=== PATIENT | female | born 1960 | race Caucasian/White ===

== ENCOUNTER 2016-06-14 12:05 | Emergency (ER) | payer OTHER ==
[~2016-06-14] VITALS: Ht 157.5 cm; Wt 72.6 kg
[~2016-06-14 12:05] MED LIST: VALS160T2 PO
[2016-06-14 12:51] LABS: APPEARANCE,URINE Turbid (CLEAR); BILIRUBIN,URINE Negative (NEGATIVE); BLOOD, URINE Trace-lysed Ery/uL (NEGATIVE); COLOR,URINE Orange (YELLOW); KETONES,URINE Negative (NEGATIVE); LEUKOCYTE ESTERASE ,URINE Trace (NEGATIVE); NITRITE, URINE Positive (NEGATIVE); PH,URINE 6.5 (5.0-8.0); PROTEIN,URINE 30 mg/dl (NEGATIVE); UGLUCOSE 100 MG/DL mg/dL (NEGATIVE)
[2016-06-14 13:00] LABS: RBC,URINE 0-2 /HPF (0-2)
[2016-06-14 13:01] LABS: ADD URINE CULTURE YES; BACTERIA,URINE Moderate /HPF (None Seen); SQUAMOUS EPITHELIAL CELL,UR Few /HPF (None Seen)
[2016-06-14] MEDS ORDERED: CEPHALEXIN MONOHYDRATE 500 MG CAPSULE PO ONE ×2 (13:26→13:30)
[2016-06-14] MEDS ORDERED: PHENAZOPYRIDINE HCL 200 MG TABLET ONE (13:26)
[2016-06-14] MEDS ORDERED: PHENAZOPYRIDINE HCL 200 MG TABLET PO ONE (13:30)
[2016-06-14 13:36] VITALS: BP 125/84
== END 2016-06-14 13:42 | disposition home or self-care (01) ==
LOC: ER 12:07
DX: N39.0 Urinary tract infection, site not specified (principal); I10 Essential (primary) hypertension; Z90.49 Acquired absence of other specified parts of digestive tract; Z98.890 Other specified postprocedural states
CPT/HCPCS: 81000-TC; 82962-TC; 87086-TC; 87186-TC; A4606; Z7610

== ENCOUNTER 2017-02-27 11:46 | Emergency (ER) | payer OTHER ==
[~2017-02-27] VITALS: Ht 162.6 cm; Wt 72.6 kg
[2017-02-27 11:55] VITALS: BP 129/80
== END 2017-02-27 12:46 | disposition home or self-care (01) ==
LOC: ER 11:49
DX: R13.19 Other dysphagia (principal); R53.81 Other malaise; I10 Essential (primary) hypertension; Z90.49 Acquired absence of other specified parts of digestive tract; Z90.89 Acquired absence of other organs
CPT/HCPCS: 99283; A4606; Z7610

== ENCOUNTER 2017-08-10 10:50 | Emergency (ER) | payer OTHER ==
[~2017-08-10] VITALS: Ht 162.6 cm; Wt 72.6 kg
[2017-08-10 10:59] VITALS: BP 147/85
== END 2017-08-10 12:04 | disposition home or self-care (01) ==
LOC: ER 10:52
DX: M25.562 Pain in left knee (principal); I10 Essential (primary) hypertension; Z90.49 Acquired absence of other specified parts of digestive tract; Z90.89 Acquired absence of other organs
CPT/HCPCS: 73564-TC; A4606; Z7610

== ENCOUNTER → 2018-08-29 | Emergency (ER) | payer OTHER ==
[~2018-08-29] VITALS: Ht 157.5 cm; Wt 77.1 kg
[~2018-08-29] MED LIST changes: +DIAZEPAM 10 MG TABLET ONE; +DIAZEPAM 10 MG TABLET PO ONE; +FENTANYL PF 100MCG/2ML AMPUL IV ONE; +FENTANYL PF 100MCG/2ML AMPUL ONE; +KETOROLAC TROMETHAMINE INJ 30 MG/ML VIAL IV ONE; +KETOROLAC TROMETHAMINE INJ 30 MG/ML VIAL ONE; +MORPHINE SULFATE INJ 2 MG/ML DISP.SYRIN IV ONE; +MORPHINE SULFATE INJ 4 MG/ML DISP.SYRIN ONE
[2018-08-29 09:48] VITALS: BP 124/68
--- NOTE | 2018-08-29 10:30 | NUR ---
PER ADMITTING AWAITING CALL FROM CM REGARDING CLINICALS FOR TRANSFER CENTER
--- NOTE | 2018-08-29 11:21 | NUR ---
CALLED [facility] - [facility]ITT[facility] TELLO
--- NOTE | 2018-08-29 12:00 | NUR ---
report given to Fabiana RASMUSSEN for hetal.
--- NOTE | 2018-08-31 08:37 | NUR ---
LATE ENTRY DATED 08/29/18. Patient discharged to home in stable condition. Written and verbal after care instructions given. Patient verbalizes understanding of instruction.IV removed. Catheter intact and site benign. Pressure and 4x4 applied to site. No bleeding noted. informed to follow up with PMD for pain management.
== END | disposition home or self-care (01) ==
LOC: ER 08:01 → UNDOADMIN 11:32 → MED 11:32
DX: M54.5 Low back pain (principal); I10 Essential (primary) hypertension; Z90.49 Acquired absence of other specified parts of digestive tract; Z90.89 Acquired absence of other organs; Z98.890 Other specified postprocedural states; Z79.899 Other long term (current) drug therapy
CPT/HCPCS: 72131; 87081; 96374; 96375; 99284; J1885; J2270; J3010

== ENCOUNTER 2018-12-04 06:34 | Emergency (ER) | payer OTHER ==
[~2018-12-04] VITALS: Ht 157.5 cm; Wt 74.8 kg
[~2018-12-04 06:34] MED LIST changes: -DIAZEPAM 10 MG TABLET ONE; -DIAZEPAM 10 MG TABLET PO ONE; -FENTANYL PF 100MCG/2ML AMPUL IV ONE; -FENTANYL PF 100MCG/2ML AMPUL ONE; -KETOROLAC TROMETHAMINE INJ 30 MG/ML VIAL IV ONE; -KETOROLAC TROMETHAMINE INJ 30 MG/ML VIAL ONE; -MORPHINE SULFATE INJ 2 MG/ML DISP.SYRIN IV ONE; -MORPHINE SULFATE INJ 4 MG/ML DISP.SYRIN ONE
--- NOTE | 2018-12-04 06:45 | NUR ---
PT BIB EMS. AAOX4. AMBULATORY. PT C/O ABDOMINAL PAIN WITH N/V X1 DAY. PT BREATHING EVEN AND UNLABORED. SKIN WARM AND INTACT. PLACED ON MONITOR AND PULSE OX. NO ACUTE DISTRESS NOTED. WILL CONTINUE TO MONITOR.
[2018-12-04] MEDS ORDERED: ONDANSETRON HCL/PF 4 MG/2 ML VIAL ONE (06:49)
[2018-12-04] MEDS ORDERED: ONDANSETRON HCL/PF 4 MG/2 ML VIAL IVP ONE (07:00)
[2018-12-04] MEDS ORDERED: IV NS 0.9% 1,000 ML BAG IV ONE (07:00)
[2018-12-04 07:14] LABS: BASOPHILS # (AUTO) 0.1 /CMM (0.0-0.2); BASOPHILS % (AUTO) 0.7 % (0.0-2.0); EOSINOPHILS % (AUTO) 0.3 % (0.0-6.0); HEMATOCRIT 43 % (33-45); HEMOGLOBIN 14.7 g/dL (11.5-14.8); LYMPHOCYTES # (AUTO) 0.6 /CMM (0.8-4.8); LYMPHOCYTES % (AUTO) 5.5 % (20.0-44.0); MEAN CORPUSCULAR HGB CONC 34 g/dl (31.0-36.0); MEAN CORPUSCULAR VOLUME 96 fL (82-100); MONOCYTES # (AUTO) 0.5 /CMM (0.1-1.30); MONOCYTES % (AUTO) 4.4 % (2.0-12.0); NEUTROPHILS # (AUTO) 9.4 /CMM (1.8-8.9); NEUTROPHILS % (AUTO) 89.1 % (43.0-81.0); PLATELET COUNT (AUTO) 303 /CMM (150-450); RED BLOOD CELL COUNT(AUTO) 4.52 MIL/uL (4.0-5.2); WHITE BLOOD COUNT (AUTO) 10.6 K/uL (4.3-11.0)
[2018-12-04 07:27] LABS: ALBUMIN 4.2 g/dL (3.4-5.0); BILIRUBIN,DIRECT 0.1 mg/dL (0.0-0.2); BILIRUBIN,TOTAL 0.8 mg/dL (0.2-1.0); CALCIUM, SERUM 8.8 mg/dL (8.5-10.1); POTASSIUM 3.7 mmol/L (3.5-5.1)
[2018-12-04] MEDS ORDERED: ACETAMINOPHEN ES 500 MG TABLET PO ONE (07:30)
[2018-12-04] MEDS ORDERED: HALOPERIDOL LACTATE INJ 5 MG/ML VIAL IV ONE (07:30)
--- NOTE | 2018-12-04 07:33 | NUR ---
REPORT GIVEN TO VALERY WILSON FOR [facility] MARIA.
[2018-12-04] MEDS ORDERED: HALOPERIDOL LACTATE INJ 5 MG/ML VIAL ONE (07:36)
[2018-12-04 08:25] LABS: APPEARANCE,URINE Clear (CLEAR); BILIRUBIN,URINE Negative (NEGATIVE); BLOOD, URINE Trace-intact Ery/uL (NEGATIVE); KETONES,URINE Negative (NEGATIVE); LEUKOCYTE ESTERASE ,URINE Negative (NEGATIVE); NITRITE, URINE Negative (NEGATIVE); PROTEIN,URINE Negative (NEGATIVE); UGLUCOSE Negative (NEGATIVE); UROBILINOGEN,URINE 0.2 EU/dL (0.2)
[2018-12-04 08:32] LABS: COLOR,URINE DARK YELLOW (YELLOW)
[2018-12-04 08:33] LABS: BACTERIA,URINE Few /HPF (None Seen); SQUAMOUS EPITHELIAL CELL,UR Few /HPF (None Seen)
[2018-12-04 09:27] VITALS: BP 124/74
--- NOTE | 2018-12-04 09:27 | NUR ---
IV removed. Catheter intact and site benign. Pressure and 4x4 applied to site. No bleeding noted. Patient discharged to home in stable condition. Written and verbal after care instructions given. Patient verbalizes understanding of instruction.
== END 2018-12-04 09:28 | disposition home or self-care (01) ==
LOC: ER 06:37
DX: T62.8X1A Toxic effect of other specified noxious substances eaten as food, accidental (unintentional), initial encounter (principal); R11.2 Nausea with vomiting, unspecified; I10 Essential (primary) hypertension; Z90.49 Acquired absence of other specified parts of digestive tract; Z98.890 Other specified postprocedural states; Z90.89 Acquired absence of other organs; Z79.899 Other long term (current) drug therapy; Y92.89 Other specified places as the place of occurrence of the external cause
CPT/HCPCS: 36415; 80048; 80076; 81001; 83690; 85025; 96361; 96374; 96375; 99283; J1630; J2405; J7030; 81000-TC

== ENCOUNTER 2019-04-06 10:18 | Emergency (ER) | payer OTHER ==
[~2019-04-06] VITALS: Ht 162.6 cm; Wt 75.7 kg
--- NOTE | 2019-04-06 10:29 | NUR ---
CAME IN FOR ELEVATED BLOOD PRESSURE AT 0300 THIS MORNING (147/93), TO ER BED 10, HOOKED TO MONITOR, CHANGED TO HOSP GOWN, WARM BLANKET PROVIDED. AWAITING MD LESLIE.
[2019-04-06] MEDS ORDERED: PROP10TA10 PO (10:33)
[2019-04-06] MEDS ORDERED: MELO15TA13 PO (10:33)
[2019-04-06] MEDS ORDERED: LOSA100T3 PO (10:33)
--- NOTE | 2019-04-06 10:41 | NUR ---
DR ARIAS AT BEDSIDE
--- NOTE | 2019-04-06 11:11 | NUR ---
WHEELED OUT VIA [facility] FOR CT SCAN.
[2019-04-06 11:17] LABS: BASOPHILS # (AUTO) 0.1 /CMM (0.0-0.2); BASOPHILS % (AUTO) 0.8 % (0.0-2.0); EOSINOPHILS % (AUTO) 1.6 % (0.0-6.0); HEMATOCRIT 37 % (33-45); HEMOGLOBIN 12.6 g/dL (11.5-14.8); LYMPHOCYTES # (AUTO) 1.8 /CMM (0.8-4.8); LYMPHOCYTES % (AUTO) 25.6 % (20.0-44.0); MEAN CORPUSCULAR HGB CONC 34 g/dl (31.0-36.0); MEAN CORPUSCULAR VOLUME 100 fL (82-100); MONOCYTES # (AUTO) 0.6 /CMM (0.1-1.30); MONOCYTES % (AUTO) 7.8 % (2.0-12.0); NEUTROPHILS # (AUTO) 4.5 /CMM (1.8-8.9); NEUTROPHILS % (AUTO) 64.2 % (43.0-81.0); PLATELET COUNT (AUTO) 296 /CMM (150-450); RED BLOOD CELL COUNT(AUTO) 3.73 MIL/uL (4.0-5.2); WHITE BLOOD COUNT (AUTO) 7.1 K/uL (4.3-11.0)
[2019-04-06 11:24] LABS: CALCIUM, SERUM 9.1 mg/dL (8.5-10.1); CARBON DIOXIDE 31 mmol/L (21-32); CHLORIDE 105 mmol/L (98-107); CREATININE 0.9 mg/dL (0.6-1.3); GLUCOSE 104 mg/dL (74-106); SODIUM SERUM 142 mmol/L (136-145); UREA NITROGEN, BLOOD 9 mg/dL (7-18)
[2019-04-06 11:29] LABS: ALANINE AMINOTRANSFERASE 20 U/L (12-78); ALBUMIN 3.9 g/dL (3.4-5.0); ALKALINE PHOSPHATASE 101 U/L (46-116); ASPARTATE AMINOTRANSFERASE 31 U/L (15-37); BILIRUBIN,DIRECT 0.1 mg/dL (0.0-0.2); BILIRUBIN,TOTAL 0.4 mg/dL (0.2-1.0); TOTAL PROTEIN, SERUM 7.6 g/dL (6.4-8.2)
--- NOTE | 2019-04-06 12:20 | NUR ---
Patient discharged to home in stable condition. Written and verbal after care instructions given. Patient verbalizes understanding of instruction.
[2019-04-06 12:24] VITALS: BP 132/70
== END 2019-04-06 12:24 | disposition home or self-care (01) ==
LOC: ER 10:22
DX: R51 Headache (principal); I10 Essential (primary) hypertension; R00.1 Bradycardia, unspecified; Z90.89 Acquired absence of other organs; Z90.49 Acquired absence of other specified parts of digestive tract; Z98.890 Other specified postprocedural states; Z79.899 Other long term (current) drug therapy
CPT/HCPCS: 36415; 70450-TC; 80048-TC; 80076-TC; 84484-TC; 85025-TC

== ENCOUNTER 2019-07-31 06:48 | Emergency (ER) | payer OTHER ==
[~2019-07-31] VITALS: Ht 157.5 cm; Wt 74.8 kg
[~2019-07-31 06:48] MED LIST changes: +LOSA100T3 PO; +MELO15TA13 PO; +PROP10TA10 PO; -VALS160T2 PO
--- NOTE | 2019-07-31 06:55 | NUR ---
PATIENT CAME TO ER BED 7 C/O LOWER ABDOMINAL PAIN RADIATING TO HER BACK FOR 2-3 MONTHS. PATIENT DENIES DYSURIA, DENIES HEMATURIA. PATIENT STATES THAT SHE HAS BEEN HAVING NORMAL BOWEL MOVEMENTS AND URINATION. AAOX4. NO SOB. BREATHING EVENLY AND UNLABORED ON ROOM AIR. CONNECTED TO MONITOR.
--- NOTE | 2019-07-31 07:00 | NUR ---
DR THORNTON AT THE BED SIDE
--- NOTE | 2019-07-31 07:02 | NUR ---
URINE CLLECTED AND SENT TO LAB
--- NOTE | 2019-07-31 07:06 | NUR ---
PT PLACED ON MONITOR AND PULSE OX. VSS.
--- NOTE | 2019-07-31 07:32 | NUR ---
REPORT GIVEN TO FRANKIE RASMUSSEN FOR ANA MARIA.
[2019-07-31 07:47] LABS: APPEARANCE,URINE Slightly Cloudy (CLEAR); BILIRUBIN,URINE NEGATIVE (NEGATIVE); BLOOD, URINE TRACE-INTA Ery/uL (NEGATIVE); COLOR,URINE YELLOW (YELLOW); KETONES,URINE NEGATIVE (NEGATIVE); LEUKOCYTE ESTERASE ,URINE SMALL (NEGATIVE); NITRITE, URINE POSITIVE (NEGATIVE); PROTEIN,URINE NEGATIVE (NEGATIVE); UGLUCOSE NEGATIVE (NEGATIVE); UROBILINOGEN,URINE 0.2 EU/dL (0.2)
[2019-07-31 07:48] LABS: BASOPHILS % (AUTO) 0.1 % (0.0-2.0); EOSINOPHILS % (AUTO) 0.1 % (0.0-6.0); HEMATOCRIT 33 % (33-45); HEMOGLOBIN 10.9 g/dL (11.5-14.8); LYMPHOCYTES # (AUTO) 1.4 /CMM (0.8-4.8); LYMPHOCYTES % (AUTO) 11.9 % (20.0-44.0); MEAN CORPUSCULAR HGB CONC 33 g/dl (31.0-36.0); MEAN CORPUSCULAR VOLUME 94 fL (82-100); MONOCYTES # (AUTO) 1.4 /CMM (0.1-1.30); MONOCYTES % (AUTO) 11.5 % (2.0-12.0); NEUTROPHILS # (AUTO) 9.2 /CMM (1.8-8.9); NEUTROPHILS % (AUTO) 76.4 % (43.0-81.0); PLATELET COUNT (AUTO) 390 /CMM (150-450); RED BLOOD CELL COUNT(AUTO) 3.53 MIL/uL (4.0-5.2)
[2019-07-31 07:53] LABS: BACTERIA,URINE 3+ /HPF (None Seen)
[2019-07-31 07:55] LABS: CALCIUM, SERUM 8.5 mg/dL (8.5-10.1); CREATININE 0.9 mg/dL (0.6-1.3); POTASSIUM 3.8 mmol/L (3.5-5.1)
[2019-07-31 08:01] LABS: ALBUMIN 3.4 g/dL (3.4-5.0); BILIRUBIN,DIRECT 0.1 mg/dL (0.0-0.2); BILIRUBIN,TOTAL 0.4 mg/dL (0.2-1.0)
[2019-07-31 08:20] VITALS: BP 134/66
== END 2019-07-31 08:24 | disposition home or self-care (01) ==
LOC: ER 06:50
DX: N39.0 Urinary tract infection, site not specified (principal); I10 Essential (primary) hypertension; Z90.49 Acquired absence of other specified parts of digestive tract; Z98.890 Other specified postprocedural states; Z90.89 Acquired absence of other organs; Z79.899 Other long term (current) drug therapy
CPT/HCPCS: 36415; 80048-TC; 80076-TC; 81000-TC; 83690-TC; 85025-TC; 87086-TC; 87186-TC